=== PATIENT | male | born 1960 | race Caucasian/White ===

== ENCOUNTER 2022-10-22 10:56 | Day surgery (SDC) | payer MEDICAID ==
[~2022-10-22] VITALS: Ht 175.3 cm; Wt 104.3 kg
[2022-10-22] MEDS ORDERED: methylPREDNISolone ACETATE 40 MG/ML ONE (12:10)
[2022-10-22] MEDS ORDERED: IOPAMIDOL 50 ML VIAL IV ONE (12:10)
[2022-10-22] MEDS ORDERED: LIDOCAINE 2%, 20 ML MDV ONE (12:10)
[2022-10-22] MEDS ORDERED: DIPHENHYDRAMINE INJ 50 MG/ML VIAL ONE (12:10)
[2022-10-22] MEDS ORDERED: NORMAL SALINE 10 ML VIAL ONE (12:10)
[2022-10-22] MEDS: MIDAZOLAM HCL 5 MG/5 ML VIAL ONE ×2 (14:26→14:32)
[2022-10-22] MEDS: fentaNYL CITRATE/PF 100 MCG/2 ML AMP ONE ×2 (14:30→14:34)
[2022-10-22 17:49] VITALS: BP_SYST 137
== END 2022-10-22 15:36 | disposition home or self-care (01) ==
LOC: SDS 10:56 → SMU 10:57 → SDS 15:36
PROVIDERS: ATTEND Internal Medicine
DX: M51.16 Intervertebral disc disorders with radiculopathy, lumbar region (principal); Z20.822 Contact with and (suspected) exposure to COVID-19; Z79.899 Other long term (current) drug therapy
CPT/HCPCS: 62323; 87426; 36415; J1200; J2001; J1030; J2250; J3010; Q9967; 76000

== ENCOUNTER 2022-12-24 08:11 | Day surgery (SDC) | payer MEDICAID ==
[~2022-12-24] VITALS: Ht 175.3 cm; Wt 103.9 kg
[2022-12-24] MEDS ORDERED: MIDAZOLAM HCL 2 MG/2 ML VIAL (VERSED) ONE (09:00)
[2022-12-24] MEDS ORDERED: methylPREDNISolone ACETATE 40 MG/ML ONE (09:00)
[2022-12-24] MEDS ORDERED: ISOVUE-300 (IOPAMIDOL) 100 ML INFUS..BTL IV ONE (09:00)
[2022-12-24] MEDS ORDERED: NORMAL SALINE 10 ML VIAL ONE (09:00)
[2022-12-24] MEDS ORDERED: LIDOCAINE 2%, 20 ML MDV ONE (09:00)
[2022-12-24] MEDS ORDERED: MIDAZOLAM HCL 5 MG/5 ML VIAL ONE (09:01)
[2022-12-24] MEDS ORDERED: ONDANSETRON HCL 4 MG/2 ML VIAL ONE ×2 (09:02)
[2022-12-24] MEDS ORDERED: fentaNYL CITRATE/PF 100 MCG/2 ML AMP ONE (09:02)
[2022-12-24] MEDS ORDERED: DIPHENHYDRAMINE INJ 50 MG/ML VIAL ONE (09:02)
[2022-12-24 16:59] VITALS: BP_SYST 112
== END 2022-12-24 11:59 | disposition home or self-care (01) ==
LOC: SDS 08:11 → SMU 08:12 → SDS 11:59
PROVIDERS: ATTEND Internal Medicine
DX: M51.16 Intervertebral disc disorders with radiculopathy, lumbar region (principal); M25.562 Pain in left knee; M25.561 Pain in right knee; M79.10 Myalgia, unspecified site; Z79.899 Other long term (current) drug therapy
CPT/HCPCS: 62323; J1200; J2001; J1030; J2250; J3465; J2405; J3010; Q9967; 76000

== ENCOUNTER 2023-07-29 10:57 | Day surgery (SDC) | payer MEDICAID ==
[~2023-07-29] VITALS: Ht 175.3 cm; Wt 99.8 kg
[2023-07-29 14:00] VITALS: O2SAT 97
[2023-07-29] MEDS ORDERED: DIPHENHYDRAMINE INJ 50 MG/ML VIAL ONE (14:18)
[2023-07-29] MEDS ORDERED: fentaNYL CITRATE/PF 100 MCG/2 ML AMP ONE (14:18)
[2023-07-29] MEDS: MIDAZOLAM HCL 5 MG/5 ML VIAL ONE ×3 (14:22→14:25)
[2023-07-29 16:27] VITALS: BP_SYST 124; PULSE 63; RESP 17
== END 2023-07-29 15:15 | disposition home or self-care (01) ==
LOC: SDS 10:57
PROVIDERS: ATTEND Internal Medicine
DX: M51.16 Intervertebral disc disorders with radiculopathy, lumbar region (principal); M51.9 Unspecified thoracic, thoracolumbar and lumbosacral intervertebral disc disorder; M79.10 Myalgia, unspecified site; M25.561 Pain in right knee; M25.562 Pain in left knee; Z79.899 Other long term (current) drug therapy
CPT/HCPCS: 62323; J2250; J3010; 76000; J1200

== ENCOUNTER 2024-02-24 06:48 | Day surgery (SDC) | payer MEDICAID ==
[~2024-02-24] VITALS: Ht 175.3 cm; Wt 90.7 kg
[2024-02-24] MEDS ORDERED: fentaNYL CITRATE/PF 100 MCG/2 ML AMP ONE (08:17)
[2024-02-24] MEDS ORDERED: ONDANSETRON HCL 4 MG/2 ML VIAL ONE (08:18)
[2024-02-24] MEDS ORDERED: MIDAZOLAM HCL 5 MG/5 ML VIAL ONE (08:18)
[2024-02-24] MEDS ORDERED: DIPHENHYDRAMINE INJ 50 MG/ML VIAL ONE (08:18)
[2024-02-24] MEDS: MIDAZOLAM HCL 5 MG/5 ML VIAL IVP ONE ×2 (09:05→09:07)
[2024-02-24] MEDS ORDERED: LIDOCAINE 2%, 20 ML MDV ONE (12:00)
[2024-02-24] MEDS ORDERED: BUPIVACAINE /PF 0.25% 30 ML VIAL INJ ONE (12:00)
[2024-02-24] MEDS ORDERED: methylPREDNISolone ACETATE 40 MG/ML ONE (12:00)
[2024-02-24] MEDS ORDERED: NORMAL SALINE 10 ML VIAL ONE (12:00)
[2024-02-24] MEDS ORDERED: IOHEXOL 300 mgI/mL, 50 mL INFUS..BTL IV ONE (12:00)
[2024-02-24 12:15] VITALS: BP_SYST 121; PULSE 60; RESP 16; TEMP 97.9; O2SAT 97
== END 2024-02-24 09:41 | disposition home or self-care (01) ==
LOC: SDS 06:48 → SMU 06:55 → SDS 09:41
PROVIDERS: ATTEND Internal Medicine
DX: M51.16 Intervertebral disc disorders with radiculopathy, lumbar region (principal); E78.5 Hyperlipidemia, unspecified; G89.29 Other chronic pain; Z98.890 Other specified postprocedural states; Z79.899 Other long term (current) drug therapy; M79.10 Myalgia, unspecified site
CPT/HCPCS: 62323; J3490; J2250; J3010; Q9967; J1010; 76000; J1030; J1200; J2001; J2405